=== PATIENT | male | born 1945 | race Caucasian/White ===

== ENCOUNTER 2016-10-31 07:57 | Outpatient (CLI) | payer OTHER ==
[2016-10-31 09:38] LABS: EOSINOPHILS # (AUTO) 0.4 K/uL (0.0-0.4); MEAN CORPUSCULAR HEMOGLOBIN 29 pg (27-31); MEAN CORPUSCULAR HGB CONC 32 % (32-36); MONOCYTES # (AUTO) 0.7 K/uL (0.0-1.0); MONOCYTES % (AUTO) 8.8 % (1.7-9.3); PLATELET COUNT (AUTO) 177 K/uL (130-430); WHITE BLOOD COUNT (AUTO) 7.5 K/uL (4.8-10.8)
[2016-10-31 09:49] LABS: BASOPHILS % (AUTO) 0.5 % (0.0-2.0); EOSINOPHILS % (AUTO) 4.8 % (0.0-4.0); HEMATOCRIT 48.7 % (36-54); HEMOGLOBIN 15.8 g/dL (14.0-18.0); LYMPHOCYTES # (AUTO) 1.3 K/uL (1.0-5.5); LYMPHOCYTES % (AUTO) 17.9 % (20.5-51.5); MEAN CORPUSCULAR VOLUME 89 fL (79.0-98.0); NEUTROPHILS # (AUTO) 5.1 K/uL (1.8-7.7); RED BLOOD CELL COUNT(AUTO) 5.44 MIL/uL (4.2-6.2); RED CELL DISTRIBUTION WIDTH 12.2 % (9.0-15.0)
[2016-10-31 09:56] LABS: ALANINE AMINOTRANSFERASE 26 U/L (12-78); ANION GAP 5 (5-15); ASPARTATE AMINOTRANSFERASE 20 U/L (10-37); CALCIUM 9.5 mg/dL (8.4-11.0); CHLORIDE 104 mmol/L (98-107); CHOLESTEROL 297 mg/dL (<200); CREATININE 1.05 mg/dL (0.55-1.30); GLUCOSE 98 mg/dL (70-99); HDL CHOLESTEROL 39 mg/dL (>45); LDL CHOLESTEROL 234 mg/dL (<100); POTASSIUM 4.3 mmol/L (3.5-5.1); SODIUM SERUM 141 mmol/L (136-145); THYROID STIMULATING HORMONE 1.14 uIu/mL (0.34-4.82); TOTAL BILIRUBIN 0.6 mg/dL (0.0-1.0); TOTAL PROTEIN, SERUM 8.3 g/dL (6.4-8.3); TRIGLYCERIDES 132 mg/dL (30-150); UREA NITROGEN, BLOOD 24 mg/dL (8-21)
[2016-10-31 10:09] LABS: IRON (SERUM) 103 mcg/dL (59-158); TOTAL IRON BIND. CAPACITY 349 ug/dL (250-450)
[2016-10-31 10:17] LABS: ERYTHROCYTE SEDIMENTATION RATE 23 MM/HR (0-15)
[2016-11-01 08:11] LABS: PROSTATE SPECIFIC AG 0.5 ng/mL (0.0-4.0)
[2016-11-01 10:31] LABS: FOLATE (FOLIC ACID) 16.4 ng/mL (>3.0)
== END 2016-10-31 20:03 | disposition home or self-care (01) ==
LOC: SLB 07:57
PROVIDERS: ATTEND Internal Medicine
DX: I10 Essential (primary) hypertension (principal); R94.31 Abnormal electrocardiogram [ECG] [EKG]
CPT/HCPCS: 36415; 80053; 80061; 82306; 82607; 82746; 83036; 83540-TC; 83550-TC; 84153; 84443-TC; 85025; 85651-TC; 93005; 93306